=== PATIENT | female | born 1990 | race Caucasian/White ===

== ENCOUNTER 2017-08-23 03:48 | Emergency (ER) | payer BC, MEDICAID ==
--- NOTE | 2017-08-23 05:22 | EDM.PDOC ---
ED HPI GENERAL MEDICAL PROBLEM - General Chief Complaint: [employer] Problem Stated Complaint: BLEEDING/8 WEEKS R Time Seen by Provider: 08/23/17 05:00 Source of Information: Reports: Patient History Limitations: Reports: No Limitations - History of Present Illness INITIAL COMMENTS - FREE TEXT/NARRATIVE: Jacy is a primigravida approximately 8 weeks gestation with a hx of spotting for over a week. She had some painless spotting overnight and passed a mucous plug this am which she brought to the ED for inspection. She requests guidance regarding management. Lower abdomen Pain Score (Numeric/FACES): 4 - Related Data Allergies Allergy/AdvReac Type Severity Reaction Status Date / Time No Known Allergies Allergy Verified 04/16/15 04:21 Home Meds: Home Meds Levothyroxine [Sythroid] 100 mcg PO DAILY 08/23/17 [History] Pnv with Ca,No.72/Iron/Fa [Preplus Ca-Fe 27 mg-FA 1 mg Tb] 1 each PO DAILY 08/23 [History] Past Medical History Respiratory History: Reports: Asthma Genitourinary History: Reports: None [employer] History: Reports: Other [employer] History: G1, EDC 06/30/2017 Neurological History: Reports: Migraines Psychiatric History: Reports: Anxiety, Depression, PTSD Endocrine/Metabolic History: Reports: Hypothyroidism - Infectious Disease History Infectious Disease History: Reports: Chicken Pox - Past Surgical History Neurological Surgical History: Reports: None Social & Family History - Family History Family Medical History: Noncontributory Endocrine/Metabolic: Reports: Diabetes, type II Oncologic: Reports: Breast - Tobacco Use Smoking Status *Q: Never Smoker - Caffeine Use Caffeine Use: Reports: None - Recreational Drug Use Recreational Drug Use: No ED ROS GENERAL - Review of Systems Review Of Systems: ROS reveals no pertinent complaints other than HPI. ED EXAM - Physical Exam Exam: See Below Exam Limited By: No Limitations General Appearance: Alert, WD/WN, No Apparent Distress Head: Normocephalic Neck: Normal Inspection Respiratory/Chest: Lungs Clear Cardiovascular: Regular Rate, Rhythm GI/Abdominal Exam: Normal Bowel Sounds, Soft, Non-Tender, No Organomegaly, No Distention, No Mass Back Exam: Normal Inspection Extremities: Normal Inspection Neurological: Alert, Oriented, CN II-XII Intact, Normal Cognition, Normal Gait, No Motor/Sensory Deficits Psychiatric: Normal Affect, Anxious Skin Exam: Warm, Dry, Intact Lymphatic: No Adenopathy Course - Vital Signs Text/Narrative:: The se HCG 3591 would be low for 8 weeks. Last Recorded V/S: Last Vital Signs Temp 36.8 C 08/23/17 03:51 Pulse 120 H 08/23/17 03:51 Resp 18 08/23/17 03:51 BP 137/81 08/23/17 03:51 Pulse Ox 99 08/23/17 03:51 - Orders/Labs/Meds Labs: Laboratory Tests 08/23/17 Range/Units 04:15 HCG, Quant 3591 (<5) mIU/mL Departure - Departure Time of Disposition: :18 Disposition: Home, Self-Care 01 Condition: Fair Clinical Impression: Threatened in first trimester - Discharge Information *PRESCRIPTION DRUG MONITORING PROGRAM REVIEWED*: Not Applicable *COPY OF PRESCRIPTION DRUG MONITORING REPORT IN PATIENT ZEFERINO: Not Applicable Instructions: Threatened Miscarriage, [id number] Referrals: Kriss Segovia NP [Primary Care Provider] - Forms: ED Department Discharge Additional Instructions: Activity as tolerated. Tylenol as needed for pain. Follow up with regular MD at clinic on Monday, call for appt. - Problem List & Annotations (1) Threatened in first trimester SNOMED Code(s): 07920486 Code(s): O20.0 - THREATENED Status: Acute Current Visit: Yes Annotation/Comment:: In the absence of obvious conceptus at this stage of the , I suggested a follow up visit with PCP in 2 days, and repeat se HCG if needed. Prognosis is poor. - Problem List Review Problem List Initiated/Reviewed/Updated: Yes - Assessment/Plan Plan: Follow up with PCP.
[2017-08-23 05:23] VITALS: BP 123/73
== END 2017-08-23 05:19 | disposition home or self-care (01) ==
LOC: FB.ED 03:48
DX: O20.0 Threatened abortion (principal); Z79.899 Other long term (current) drug therapy; Z3A.08 8 weeks gestation of pregnancy
CPT/HCPCS: 36415; 84702; 99283